=== PATIENT | female | born 1985 | race African-American/Black ===

== ENCOUNTER 2016-12-16 09:45 | Emergency (ER) | payer MEDICARE, OTHER ==
--- NOTE | ~2016-12-16 | CR63 ---
[facility]. [facility] A Service of [facility] & [facility] RADIOLOGY TEXT RESULTS PATIENT: LAQUITA MARRUFO LOCATION: SED : [birth year] UNIT #: [id number] AGE: [address]: Nigel Zhou MD SEX: F ORDER DR: [id number] [place] [id number] E MR#: [id number] Acc #: [id number] NAME: LAQUITA MARRUFO. : 1985 SEX: F STUDY DATE/TIME: 12/16/2016 9:41 UNIT: SED ROOM: STUDY DESCRIPTION: CR Chest 2 View Attending Physician: Nigel Zhou M.D. Ordering Physician: Nigel Zhou M.D. Primary Care Physician: Raiza Murillo M.D. MEDICAL IMAGING REPORT This report is preliminary unless electronic signature is present. EXAM PA and lateral chest, 12/16/2016. HISTORY 31-year-old female with complaints of cough for 3 days. Blood in sputum. COMPARISON PA and lateral chest radiograph, 04/20/2016. FINDINGS No acute airspace disease. Heart size is within normal limits. No pleural effusion or pneumothorax is identified. Osseous structures are within normal limits. IMPRESSION No acute chest findings. No significant change compared to 04/20/2016. Dictated by... Cathryn Bowen M.D. THIS IS AN ELECTRONICALLY VERIFIED REPORT Cathryn Bowen M.D. at 12/19/2016 8:36 AM LEIGH ANN/toni TD: 12/16/2016 12:40 JOB #: [id number] MEDICAL IMAGING REPORT Page 1 of 1
[2016-12-16 09:41] LABS: INFLUENZA A NEG (NEG); INFLUENZA B NEG (NEG)
[~2016-12-16 09:45] MED LIST: BACTRIM DS TABL1 TA1 PO; CLARITIN10 M2 PO; CLEOCIN PO; DIFLUCAN PO; IBUPROFEN800 MG PO; KEFLEX500 MG PO; LEXAPRO5 MG PO; NO MEDICATIONS; PRENATAL1 TA1 PO; TYLENOL #3 PO; VIBRAMYCIN100 M1 PO
[2017-02-17] MEDS ORDERED: ALEVE220 M1 PO (09:09)
[2017-02-17] MEDS ORDERED: DESYREL50 MG PO (09:09)
== END 2016-12-16 10:05 | disposition home or self-care (01) ==
LOC: SED 09:45
PROVIDERS: Emergency Medicine
DX: J20.9 Acute bronchitis, unspecified (principal); J01.00 Acute maxillary sinusitis, unspecified; J01.20 Acute ethmoidal sinusitis, unspecified; J03.90 Acute tonsillitis, unspecified; F41.9 Anxiety disorder, unspecified; F32.9 Major depressive disorder, single episode, unspecified; Z87.891 Personal history of nicotine dependence; Z88.8 Allergy status to other drugs, medicaments and biological substances
CPT/HCPCS: 71020; 87651; 87804; 94640; 99284

== ENCOUNTER → 2017-02-17 | Outpatient (CLI) | payer MEDICARE, OTHER ==
[~2017-02-17] MED LIST changes: +ALEVE220 M1 PO; +DESYREL50 MG PO
--- NOTE | ~2017-02-17 | CR63 ---
[facility] A Service of [facility] & [facility] RADIOLOGY TEXT RESULTS PATIENT: LAQUITA MARRUFO LOCATION: [facility] : [birth year] UNIT #: [id number] AGE: [address]: Williams Pizano MD SEX: F ORDER DR: [id number] [facility] [address] [place], [place] [address] [id number] O MR#: [id number] Acc #: [id number] NAME: LAQUITA MARRUFO. : 1985 SEX: F STUDY DATE/TIME: 02/17/2017 8:12 UNIT: [facility] ROOM: STUDY DESCRIPTION: CR Chest 2 View Attending Physician: Williams Pizano M.D. Referring Physician: Williams Pizano M.D. Ordering Physician: Williams Pizano M.D. Primary Care Physician: Raiza Murillo M.D. MEDICAL IMAGING REPORT This report is preliminary unless electronic signature is present EXAM Chest PA and lateral 02/17. COMPARISON 12/16. HISTORY Preop lap band surgery. FINDINGS PA and lateral views are obtained. The cardiovascular configuration is normal and the lungs are clear. CONCLUSION Normal chest. Dictated by... Williams Cid M.D. THIS IS AN ELECTRONICALLY VERIFIED REPORT Williams Cid M.D. at 02/20/2017 5:12 PM LULU/partha TD: 02/17/2017 10:09 JOB #: [id number] MEDICAL IMAGING REPORT Page 1 of 1 COPY
--- NOTE | ~2017-02-17 | EKG ---
PATIENT: LAQUITA MARRUFO UNIT #: [id number] Ventricular Rate: 74 BPM Atrial Rate: 74 BPM P-R Interval: 138 ms QRS Duration: 86 ms Q-T Interval: 426 ms QTC Calculation(Bezet): 472 ms P [place]: 53 degrees Calculated R [place]: 0 degrees Calculated T [place]: 17 degrees Diagnosis Line: Normal sinus rhythm Diagnosis Line: Nonspecific ST-T wave changes noted Diagnosis Line: When compared with ECG of 20-APR-2016 20:10, Diagnosis Line: No significant change was found Diagnosis Line: Confirmed by DORA REDDY MD ([id number]) on Diagnosis Line: 02/17/2017 4:19:17 PM INTERPRETING MD: YARELIS
--- NOTE | ~2017-02-17 | CR97 ---
[facility] A Service of [facility] & [facility] RADIOLOGY TEXT RESULTS PATIENT: LAQUITA MARRUFO LOCATION: [facility] : 86 UNIT #: [id number] AGE: [address]: Williams Pizano MD SEX: F ORDER DR: [id number] [facility] [address] [place], [place] [address] [id number] O MR#: [id number] Acc #: [id number] NAME: LAQUITA MARRUFO : 1985 SEX: F STUDY DATE/TIME: 02/17/2017 8:25 UNIT: [facility] ROOM: STUDY DESCRIPTION: CR Esophagram Attending Physician: Williams Pizano M.D. Referring Physician: Williams Pizano M.D. Ordering Physician: Williams Pizano M.D. Primary Care Physician: Raiza Murillo M.D. MEDICAL IMAGING REPORT This report is preliminary unless electronic signature is present EXAM Barium esophagram. HISTORY Preop bariatric surgery. FINDINGS Barium was administered orally under fluoroscopic control. Swallowing was normal. The esophagus was of normal course, caliber, mucosal pattern and distensibility. CONCLUSION Normal. Dictated by... Williams Cid M.D. THIS IS AN ELECTRONICALLY VERIFIED REPORT Williams Cid M.D. at 02/20/2017 5:11 PM Bk TD: 02/17/2017 12:27 JOB #: [id number] MEDICAL IMAGING REPORT Page 1 of 1 COPY
[2017-02-17 09:00] LABS: HEMATOCRIT 39.8 % (35.0-45.0); HEMOGLOBIN 13.1 gm/dL (12.0-16.0); MEAN CELL VOLUME 92.6 FL (83-96); MEAN CORPUSCULAR HEMOGLOBIN 30.6 PG (28-34); MEAN PLATELET VOLUME 9.2 FL (6.5-11.5); RED BLOOD COUNT 4.29 X10e (3.90-5.30); RED CELL DISTRIBUTION WIDTH 12.4 % (11.0-15.5); WHITE BLOOD COUNT 7.6 X10e3 (4.0-10.5)
[2017-02-17 10:02] LABS: ALBUMIN SERUM 3.2 g/dL (3.5-5.0); BILIRUBIN,TOTAL 0.9 mg/dL (0.2-2.0); CALCIUM SERUM 8.3 mg/dL (8.4-10.2); CREATININE SERUM 0.8 mg/dL (0.6-1.4); GLOM FILT RATE Estimated 114.8 mL/min (>60); POTASSIUM 3.6 mmol/L (3.5-5.1); PROTEIN TOTAL SERUM 5.9 g/dL (6.0-8.3)
== END | disposition home or self-care (01) ==
LOC: CRAD 08:00 → CAMB 09:00
PROVIDERS: Surgery
DX: Z01.818 Encounter for other preprocedural examination (principal)
CPT/HCPCS: 36415; 71020; 74220; 80053; 80061; 84443; 85027; 93005

== ENCOUNTER → 2017-03-01 | Day surgery (SDC) | payer MEDICARE, OTHER ==
--- NOTE | ~2017-03-01 | CR7 ---
[facility] A Service of [facility] & [facility] RADIOLOGY TEXT RESULTS PATIENT: LAQUITA MARRUFO LOCATION: [facility] : [birth year] UNIT #: [id number] AGE: [address]: Williams Pizano MD SEX: F ORDER DR: [id number] [facility] [address] [place], [place] [address] [id number] O MR#: [id number] Acc #: [id number] NAME: LAQUITA MARRUFO. : 1985 SEX: F STUDY DATE/TIME: 03/01/2017 11:47 UNIT: [facility] ROOM: STUDY DESCRIPTION: CR Abdomen Single AP View Attending Physician: Williams Pizano M.D. Ordering Physician: Williams Pizano M.D. Primary Care Physician: Raiza Murillo M.D. MEDICAL IMAGING REPORT This report is preliminary unless electronic signature is present EXAM Abdominal radiograph, 03/01/2017. HISTORY Postop Lap-Band, PACU front. FINDINGS Supine radiograph of the abdomen in left anterior-oblique projection presented. Status post Lap-Band device placement. Band component at the level of gastroesophageal junction based on esophagram, 02/17/2017. Band component approximately 54 degrees from vertical. The catheter component radiographically intact, and port component implanted over the left paracentral low abdomen. Bowel gas pattern normal in visualized extent. Lung bases clear. Bony structures unremarkable. Dictated by... Williams Calderon M.D. THIS IS AN ELECTRONICALLY VERIFIED REPORT Williams Calderon M.D. at 03/02/2017 6:42 PM ANNA/toni TD: 03/01/2017 13:46 JOB #: [id number] MEDICAL IMAGING REPORT Page 1 of 1 COPY
--- NOTE | ~2017-03-01 | OR ---
Unit #: [id number] #: [id number] Patient: LAQUITA MARRUFO [id number] [address] [address] [id number] O MR#: [id number] NAME: LAQUITA MARRUFO ROOM: Date of Procedure: 03/01/2017 Admission Date: 03/01/2017 Surgeon: Williams Pizano M.D. : 1985 Attending Physician: Williams Pizano M.D. Primary Care Physician: Raiza Murillo M.D. OPERATIVE REPORT PREOPERATIVE DIAGNOSIS Chronic morbid obesity, body mass index of 35. POSTOPERATIVE DIAGNOSIS 1. Chronic morbid obesity, body mass index of 35. 2. Paraesophageal hiatal hernia. PROCEDURES PERFORMED 1. Laparoscopic adjustable gastric band. 2. Laparoscopic paraesophageal hiatal hernia repair. FINANCIAL SERVICES REP Coleman Coley M.D. ANESTHESIA General endotracheal anesthesia. ESTIMATED BLOOD LOSS Minimal. IV FLUIDS 800 crystalloid. COMPLICATIONS None. INDICATIONS FOR PROCEDURE The patient is a 31-year-old with chronic morbid obesity. DESCRIPTION OF PROCEDURE The patient was taken to the operating room and placed in supine position. General anesthesia was induced. The abdomen was prepped and draped. A 3-cm incision was then made left of the midline. A 10-mm Visiport was then placed intraabdominal under direct vision. The abdomen was insufflated to 15 mmHg with CO2. The patient was then placed in a steep reversed Trendelenburg. General inspection of the abdomen revealed what appeared to be a paraesophageal hernia. This was identified with a defect at the diaphragm using anterior palpation with the instrument. We then made a small incision in the subxiphoid region. A Elizabeth liver retractor was then placed intraabdominal and used to retract the left lobe of the liver upward to further expose the paraesophageal hernia and GE junction. I then placed a 5-mm port in the right upper quadrant, a 10-mm Unit #: [id number] #: [id number] Patient: LAQUITA MARRUFO port in the left upper quadrant, and another 5-mm port in the left lower quadrant. The stomach was retracted medial and downward. Upon retracting the stomach, we took down the paraesophageal ligament, exposing the right and left nancy at the paraesophageal hernia. Any hernia sac was reduced. We then repaired the paraesophageal hernia using interrupted #0 Ethibond sutures in a [id number] type fashion. This formed a snug repair to the anterior esophagus. We then retracted the stomach medially and further exposed the angle of His using Bovie electrocautery. The stomach was then retracted laterally. We then took down the hepatogastric ligament with Bovie electrocautery. This exposed the right nancy. Using blunt dissection, I created a retrogastric tunnel from this point to the angle of His. The band was then placed intraabdominal through the 10-mm port site. This was then brought through the retrogastric tunnel in a pars flaccida technique. The band was then closed anteriorly to form a 20-mL to 25-mL anterior gastric pouch. The fundus was then secured to the anterior pouch to prevent movement around the stomach using two interrupted #0 Ethibond sutures. A third suture was then used as a gathering stitch from the lesser curve to the anterior stomach, gathering and imbricating the remaining fundus of the stomach. The tubing was then brought out through the midline 10-mm port site. All ports and the Elizabeth liver retractor were removed under direct vision with no evidence of abdominal hemorrhage. A polypropylene mesh was then secured to the posterior face of the laparoscopic band port. This was secured using #0 Ethibond suture. This was then cut to shape. The port was then connected to the tubing and placed into a subcutaneous pocket just anterior to the rectus sheath. Its position was then confirmed. All tubing was then placed intraabdominal. The wounds were then closed with interrupted 4-0 Vicryl. The patient tolerated the procedure well and was sent to the recovery room in good condition. Dictated by... Jamil Venegas/ridge TD: 03/01/2017 16:03 JOB #: [id number] OPERATIVE REPORT Page 1 of 1 X Williams Pizano MD PROCEDURE OPERATIVE NOTE
== END | disposition home or self-care (01) ==
LOC: CSUR 07:56
DX: E66.01 Morbid (severe) obesity due to excess calories (principal); K44.9 Diaphragmatic hernia without obstruction or gangrene; F41.9 Anxiety disorder, unspecified; K21.9 Gastro-esophageal reflux disease without esophagitis; Z68.35 Body mass index [BMI] 35.0-35.9, adult; Z88.1 Allergy status to other antibiotic agents; Z88.8 Allergy status to other drugs, medicaments and biological substances; Z79.899 Other long term (current) drug therapy; Z98.890 Other specified postprocedural states
CPT/HCPCS: 74000; 84703; C1781; J0690; J1650; J1885; J2250; J2405; J3010